=== PATIENT | female | born 1995 | race African-American/Black ===

== ENCOUNTER 2017-09-28 02:13 | Emergency (ER) | payer SELFPAY, OTHER ==
[2017-09-28] MEDS: IBUPROFEN 600 MG TAB PO (03:42)
[2017-09-28] MEDS: BENOXINATE/FLUORESCEIN DROPS RIGHT EYE (03:43)
[2017-09-28] MEDS: ERYTHROMYCIN 1 GM OPH OINT RIGHT EYE (03:43)
== END 2017-09-28 04:05 | disposition home or self-care (01) ==
LOC: FTE 02:13
DX: S05.91XA Unspecified injury of right eye and orbit, initial encounter (principal); W25.XXXA Contact with sharp glass, initial encounter; Y92.9 Unspecified place or not applicable
CPT/HCPCS: 99283

== ENCOUNTER 2017-10-06 02:24 | Emergency (ER) | payer OTHER ==
[2017-10-06] MEDS: morphine 4 MG/ML VIAL IV (03:02)
[2017-10-06] MEDS: ONDANSETRON 4 MG INJ IV (03:02)
[2017-10-06 03:34] LABS: ADD MAN DIFF? NO
[2017-10-06] MEDS: SOD CHLORIDE 0.9% 1,000 ML IV (03:35)
[2017-10-06 03:36] LABS: WHITE BLOOD COUNT 11.9 10^3/ul (4.8-10.8)
[2017-10-06 03:36] LABS: BASOPHIL # 0.1 10^3/ul (0.0-0.1); BASOPHILS % 0.4 % (0.0-2.0); EOSINOPHILS # 0.2 10^3/ul (0.0-0.5); EOSINOPHILS % 1.6 % (0.0-7.0); HEMOGLOBIN 13.4 g/dl (12.0-16.0); LYMPHOCYTES # 3.3 10^3/ul (0.8-2.9); LYMPHOCYTES % 27.5 % (15.0-51.0); MEAN CORPUSCULAR HEMOGLOBIN 29.7 pg (29.0-33.0); MEAN CORPUSCULAR HGB CONC 33.5 g/dl (32.0-37.0); MEAN CORPUSCULAR VOLUME 88.7 fl (82.0-101.0); MEAN PLATELET VOLUME 11.1 fl (7.4-10.4); MONOCYTE # 0.5 10^3/ul (0.3-0.9); MONOCYTES % 4.5 % (0.0-11.0); NEUTROPHIL # 7.8 10^3/ul (1.6-7.5); NEUTROPHILS % 65.8 % (39.0-77.0); PLATELET COUNT 256 10^3/UL (140-415); RED BLOOD COUNT 4.51 10^6/ul (4.20-5.40); RED CELL DISTRIBUTION WIDTH 12.5 % (11.5-14.5)
[2017-10-06 04:00] LABS: ALANINE AMINOTRANSFERASE 24 IU/L (13-69); ALBUMIN 4.3 g/dl (3.3-4.9); ALBUMIN/GLOBULIN RATIO 1.13; ALKALINE PHOSPHATASE 64 IU/L (42-121); ANION GAP 17 (8-16); ASPARTATE AMINO TRANSFERASE 21 IU/L (15-46); BILIRUBIN,INDIRECT 0.2 mg/dl (0-1.1); BILIRUBIN,TOTAL 0.2 mg/dl (0.2-1.3); BLOOD UREA NITROGEN 15 mg/dl (7-20); CALCIUM 9.7 mg/dl (8.4-10.2); CARBON DIOXIDE 25 mmol/L (21-31); CHLORIDE 107 mmol/L (97-110); CREATININE 1.01 mg/dl (0.44-1.00); GLUCOSE 147 mg/dl (70-220); LIPASE 71 U/L (23-300); POTASSIUM 3.7 mmol/L (3.5-5.1); SODIUM 145 mmol/L (135-144); TOTAL PROTEIN 8.1 g/dl (6.1-8.1)
[2017-10-06 04:36] LABS: URINE BLOOD (Dip) POC 2+ (NEGATIVE); URINE GLUCOSE (Dip) POC Negative (NEGATIVE); URINE KETONES (Dip) POC Negative (NEGATIVE); URINE LEUKOCYTE EST (Dip) POC Negative (NEGATIVE); URINE NITRITE (Dip) POC Negative (NEGATIVE); URINE TOTAL PROTEIN POC Trace (NEGATIVE)
== END 2017-10-06 05:31 | disposition home or self-care (01) ==
LOC: FTE 02:24
DX: R10.9 Unspecified abdominal pain (principal); R10.2 Pelvic and perineal pain; R11.2 Nausea with vomiting, unspecified
CPT/HCPCS: 36415; 74176; 76830; 76856; 80053; 81003; 81025; 83690; 85025; 99285-25

== ENCOUNTER 2017-10-28 20:56 | Emergency (ER) | payer OTHER ==
[2017-10-28] MEDS: ACETAMINOPHEN 325 MG TAB PO (21:41)
[2017-10-28] MEDS: ONDANSETRON (ODT) 4 MG TAB ODT (21:41)
[2017-10-28 21:43] LABS: URINE BLOOD (Dip) POC 1+ (NEGATIVE); URINE GLUCOSE (Dip) POC Negative (NEGATIVE); URINE KETONES (Dip) POC Trace (NEGATIVE); URINE LEUKOCYTE EST (Dip) POC Negative (NEGATIVE); URINE NITRITE (Dip) POC Negative (NEGATIVE); URINE TOTAL PROTEIN POC Negative (NEGATIVE)
[2017-10-28] MEDS: KETOROLAC 30 MG INJ IM (21:49)
[2017-10-29] MEDS: NAPROXEN 500 MG TAB PO (00:20)
[2017-10-29] MEDS: morphine 4 MG/ML VIAL IM (00:21)
[2017-10-29] MEDS: HYDROCODONE/APAP (5/325) TAB PO (00:34)
== END 2017-10-29 00:41 | disposition home or self-care (01) ==
LOC: FTE 10-29 00:41
DX: D25.9 Leiomyoma of uterus, unspecified (principal); N83.201 Unspecified ovarian cyst, right side; R10.2 Pelvic and perineal pain
CPT/HCPCS: 76830; 76856; 81003; 81025; 96372; 99285-25